=== PATIENT | male | born 1970 | race Caucasian/White ===

== ENCOUNTER 2020-12-21 05:23 | Emergency (ER) | payer SELFPAY ==
--- NOTE | 2020-12-21 05:42 | ER ---
Nurse's Notes [facility] Name: Andres Cervantes Jr Age: 50 yrs Sex: Male : 1970 Arrival Date: 12/21/2020 Time: 05:25 Bed 7 Private MD: Diagnosis: Cellulitis of left lower limb Presentation: 12/21 05:33 Chief complaint: Patient states: spider bite on left thigh for 4-5 days, reports fever em off and on. Coronavirus screen: Client denies travel out of the [place] in the last 14 days. Ebola Screen: Patient negative for fever greater than or equal to 101.5 degrees Fahrenheit, and additional compatible Ebola Virus Disease symptoms Patient denies exposure to infectious person. Patient denies travel to an Ebola-affected area in the 21 days before illness onset. No symptoms or risks identified at this time. Initial Sepsis Screen: Does the patient meet any 2 criteria? Does the patient have a suspected source of infection? Yes: Skin breakdown/wound. Risk Assessment: Do you want to hurt yourself or someone else? Patient reports no desire to harm self or others. Onset of symptoms was November 27, 2020. 05:33 Method Of Arrival: Wheelchair em 05:33 Acuity: RAGHAV 4 em 05:34 Coronavirus screen: At this time, the client does not indicate any symptoms associated ea with coronavirus-19. Ebola Screen: No symptoms or risks identified at this time. Initial Sepsis Screen: Does the patient meet any 2 criteria? No. Patient's initial sepsis screen is negative. Does the patient have a suspected source of infection? No. Patient's initial sepsis screen is negative. Risk Assessment: Do you want to hurt yourself or someone else? Patient reports no desire to harm self or others. Triage Assessment: 05:38 Bite description: bite sustained to medial aspect of left thigh by insect, animal ea information: vaccination(s) is not applicable. General: Appears in no apparent distress. Behavior is appropriate for age. Respiratory: Airway is patent Respiratory effort is even, unlabored, Respiratory pattern is regular, symmetrical. Derm: Skin is. Derm: Skin is pink, warm \T\ dry. Historical: - Allergies: 05:36 Codeine; em - PMHx: 05:36 None; em - PSHx: 05:36 None; em - Immunization history:: Adult Immunizations up to date. - Social history:: Smoking status: unknown. - Family history:: not pertinent. - Hospitalizations: : No recent hospitalization is reported. Screenin:30 Abuse screen: Denies threats or abuse. Nutritional screening: No deficits noted. ea Tuberculosis screening: No symptoms or risk factors identified. Fall Risk None identified. Assessment: 05:36 General: Appears in no apparent distress. Behavior is appropriate for age. Pain: ea Complains of pain in left leg. Neuro: Level of Consciousness is awake, alert, obeys commands, Oriented to person, place, time. Cardiovascular: Patient's skin is warm and dry. Derm: Skin is red, left upper thigh. Injury Description: Bite sustained to medial aspect of right thigh caused by insect is from insect. 05:36 Derm: Skin is intact, Wound noted left upper thigh Wound is round wound size of a rr5 quarter, redness on the area noted. 05:36 Respiratory: Airway is patent Respiratory effort is even, unlabored, Respiratory rr5 pattern is regular, symmetrical. GI: No signs and/or symptoms were reported involving the gastrointestinal system. : No signs and/or symptoms were reported regarding the genitourinary system. EENT: No signs and/or symptoms were reported regarding the EENT system. Musculoskeletal: Capillary refill < 3 seconds. 05:56 Reassessment: Patient appears in no apparent distress at this time. Patient is alert, rr5 oriented x 3, equal unlabored respirations, skin warm/dry/pink. discharge instruction given and explained without complaints made. Vital Signs: 05:32 BP 134 / 71; Pulse 82; Resp 18; Pulse Ox 99% on R/A; ea 05:33 Resp 18; Temp 97.6(O); Pulse Ox 99% on R/A; Weight 104.33 kg; Height 6 ft. 1 in. em (185.42 cm); Pain 8/10; 05:33 BP 131 / 70; rr5 05:33 Body Mass Index 30.34 (104.33 kg, 185.42 cm) em ED Course: 05:25 Patient arrived in ED. bp1 05:27 Jurgen Vasquez MD is Attending Physician. rn 05:31 Sangeeta Carter RN is Primary Nurse. ea 05:31 Arm band placed on right wrist. Patient placed in an exam room, on a stretcher, on ea pulse oximetry. 05:31 Patient has correct armband on for positive identification. Bed in low position. Call ea light in reach. Side rails up X2. 05:35 Triage completed. em 05:50 No provider procedures requiring assistance completed. Patient did not have IV access rr5 during this emergency room visit. Wound care: to cellulitis located on left leg and left upper thigh was cleaned with Hibiclens, dressed with Neosporin, 4X4s, Patient tolerated well. Administered Medications: No medications were administered Outcome: 05:42 Discharge ordered by . rn 05:57 Discharged to home via wheelchair. rr5 05:57 Condition: stable 05:57 Discharge instructions given to patient, Instructed on discharge instructions, follow up and referral plans. medication usage, Demonstrated understanding of instructions, follow-up care, medications, Prescriptions given X 2. 05:58 Patient left the ED. rr5 Signatures: Mayank Rios RN RN Jurgen Maravilla MD MD rn Antunez, Elena, RN RN ea Roque, Raymond RN RN rr5 Dulce Maria Nath [facility]
--- NOTE | 2020-12-21 05:42 | EDPHYS ---
Physician Documentation [facility] Name: Andres Cervantes Jr Age: 50 yrs Sex: Male : 1970 Arrival Date: 12/21/2020 Time: 05:25 Bed 7 Private MD: ED Physician Jurgen Vasquez HPI: 12/21 05:34 This 50 yrs old Male presents to ER via Unassigned with complaints of Insect rn Bite. 05:34 The patient presents with cellulitis of the left leg, the patient presents with a rn swollen area of the left leg. Description: erythematous, swollen, warm. Onset: The symptoms/episode began/occurred 5 day(s) ago. Possible cause(s): unknown. Modifying factors: the symptoms are alleviated by squeezing the lesion and expressing the contents, baking soda paste. Severity of symptoms: At their worst the symptoms were moderate, in the emergency department the symptoms have improved. The patient has not experienced similar symptoms in the past. Reports thinks got spider bite 5 days ago, was "looking like a big pimple", popped it himself, and has been putting baking soda paste on it. Reports improving, area of redness has decreased, no more drainage, but still hurts so came in. No fever. Not diabetic.. Historical: - Allergies: 05:36 Codeine; em - PMHx: 05:36 None; em - PSHx: 05:36 None; em - Immunization history:: Adult Immunizations up to date. - Social history:: Smoking status: unknown. - Family history:: not pertinent. - Hospitalizations: : No recent hospitalization is reported. ROS: 05:34 Constitutional: Negative for fever, chills, and weight loss, Cardiovascular: Negative rn for chest pain, palpitations, and edema, Respiratory: Negative for shortness of breath, cough, wheezing, and pleuritic chest pain, Abdomen/GI: Negative for abdominal pain, nausea, vomiting, diarrhea, and constipation, Back: Negative for injury and pain, MS/Extremity: Negative for injury and deformity, Skin: + swelling and redness Neuro: Negative for headache, weakness, numbness, tingling, and seizure. Exam: 05:34 Constitutional: This is a well developed, well nourished patient who is awake, alert, rn and in no acute distress. Cardiovascular: Regular rate and rhythm. No pulse deficits. Respiratory: No increased work of breathing, no retractions or nasal flaring. Skin: Warm, dry. Left upper thigh with 3cm area of induration, central open wound, no purulence expressed with firm pressure, no streaking, no fluctuance. center of wound is open approx 1.5 cm. MS/ Extremity: Pulses equal, no cyanosis. Neurovascular intact. Full, normal range of motion. Equal circumference. Vital Signs: 05:32 BP 134 / 71; Pulse 82; Resp 18; Pulse Ox 99% on R/A; ea 05:33 Resp 18; Temp 97.6(O); Pulse Ox 99% on R/A; Weight 104.33 kg; Height 6 ft. 1 in. em (185.42 cm); Pain 8/10; 05:33 BP 131 / 70; rr5 05:33 Body Mass Index 30.34 (104.33 kg, 185.42 cm) em MDM: 05:27 Patient medically screened. rn 05:34 Differential diagnosis: cellulitis, insect bite. Data reviewed: vital signs, nurses rn notes, and as a result, I will discharge patient. Counseling: I had a detailed discussion with the patient and/or guardian regarding: the historical points, exam findings, and any diagnostic results supporting the discharge/admit diagnosis, the need for outpatient follow up, to return to the emergency department if symptoms worsen or persist or if there are any questions or concerns that arise at home. Special discussion: I discussed with the patient/guardian in detail that at this point there is no indication for admission to the hospital. It is understood, however, that if the symptoms persist or worsen the patient needs to return immediately for re-evaluation. ED course: + cellulitis with central ulceration, no fluctuance, nothing to drain, will place on abx and given return precautions. . 12/21 05:57 Order name: Wound Care; Complete Time: 05:57 rr5 Administered Medications: No medications were administered Disposition: 12/21/20 05:42 Discharged to Home. Impression: Cellulitis of left lower limb. - Condition is Stable. - Discharge Instructions: Cellulitis, Adult. - Prescriptions for Bactrim DS 800- 160 mg Oral Tablet - take 1 tablet by ORAL route every 12 hours for 10 days; 20 tablet. Doxycycline Monohydrate 100 mg Oral Tablet - take 1 tablet by ORAL route every 12 hours for 10 days; 20 tablet. - Medication Reconciliation Form, Thank You Letter, Antibiotic Education, Prescription Opioid Use form. - Follow up: Private Physician; When: As needed; Reason: Recheck today's complaints, Re-evaluation by your physician. - Problem is new. - Symptoms are unchanged. Signatures: Mayank Rios RN RN em Nieto, Roman, MD MD rn Antunez, Elena, RN RN ea Roque, Raymond, RN RN rr5 Corrections: (The following items were deleted from the chart) 05:58 05:42 12/21/2020 05:42 Discharged to Home. Impression: Cellulitis of left lower limb. rr5 Condition is Stable. Forms are Medication Reconciliation Form, Thank You Letter, Antibiotic Education, Prescription Opioid Use. Follow up: Private Physician; When: As needed; Reason: Recheck today's complaints, Re-evaluation by your physician. Problem is new. Symptoms are unchanged. rn
[2020-12-21 06:02] VITALS: O2SAT 99
[2020-12-21 06:03] VITALS: BP 131/70; TEMP 97.6
== END 2020-12-21 05:58 | disposition home or self-care (01) ==
LOC: ER 05:23
DX: L03.116 Cellulitis of left lower limb (principal)
CPT/HCPCS: 99283

== ENCOUNTER 2021-02-03 10:32 | Emergency (ER) | payer SELFPAY ==
--- NOTE | 2021-02-03 11:10 | EDPHYS ---
Physician Documentation [facility] Name: Andres Cervantes Jr Age: 50 yrs Sex: Male : 1970 Arrival Date: 02/03/2021 Time: 10:35 Bed 16 Private MD: ED Physician Haja Contreras HPI: 02/03 11:03 This 50 yrs old Male presents to ER via Ambulatory with complaints of Leg jmm Cellulitis-out of medication. 11:03 the patient presents with a swollen area of the right leg. Onset: The symptoms/episode jmm began/occurred gradually, 4 day(s) ago. Possible cause(s): unknown. Associated signs and symptoms: Pertinent positives: discharge, drainage, erythema, swelling. Modifying factors: the symptoms are alleviated by nothing. The patient has experienced similar episodes in the past. Historical: - Allergies: 10:50 Codeine; ll1 - PMHx: 10:50 None; ll1 - PSHx: 10:50 None; ll1 - Immunization history:: Last tetanus immunization: up to date Flu vaccine is up to date. - Social history:: Smoking status: Patient reports the use of cigarette tobacco products, smokes one-half pack cigarettes per day. ROS: 11:03 Constitutional: Negative for fever, chills, and weight loss, Cardiovascular: Negative jmm for chest pain, palpitations, and edema, Respiratory: Negative for shortness of breath, cough, wheezing, and pleuritic chest pain. 11:03 Skin: Positive for erythema, swelling. 11:03 All other systems are negative. Exam: 11:03 Constitutional: This is a well developed, well nourished patient who is awake, alert, jmm and in no acute distress. Head/Face: atraumatic. Eyes: EOMI, no conjunctival erythema appreciated ENT: Moist Mucus Membranes Neck: Trachea midline, Supple Chest/axilla: Normal chest wall appearance and motion. Cardiovascular: Regular rate and rhythm. No edema appreciated Respiratory: Normal respirations, no respiratory distress appreciated Abdomen/GI: Non distended, soft Back: Normal ROM 11:08 Skin: abscess, that is moderate sized, of the right [place], with drainage, with jmm fluctuance, with induration, with surrounding cellulitis. 11:08 Neuro: Orientation: is normal, Mentation: is normal, Memory: is normal. 11:08 Psych: Behavior/mood is pleasant, cooperative. Vital Signs: 10:50 BP 134 / 82; Pulse 74; Resp 16; Temp 97.4; Pulse Ox 99% ; Weight 104.33 kg; Height 6 ll1 ft. 1 in. (185.42 cm); Pain 10/10; 10:50 Body Mass Index 30.34 (104.33 kg, 185.42 cm) ll1 MDM: 10:58 Patient medically screened. [facility] 11:07 Data reviewed: vital signs, nurses notes. Counseling: I had a detailed discussion with chuckie the patient and/or guardian regarding: the historical points, exam findings, and any diagnostic results supporting the discharge/admit diagnosis, the need for outpatient follow up, to return to the emergency department if symptoms worsen or persist or if there are any questions or concerns that arise at home. 11:08 ED course: Patient refused incision and drainage. chuckie Administered Medications: No medications were administered Disposition: 17:52 Co-signature as Attending Physician, Haja Contreras MD I agree with the assessment and [facility] plan of care. Disposition: 02/03/21 11:09 Discharged to Home. Impression: Cutaneous Abscess of Right Lower Leg. - Condition is Stable. - Discharge Instructions: Skin Abscess. - Prescriptions for Clindamycin HCl 300 mg Oral Capsule - take 1 capsule by ORAL route every 6 hours for 10 days; 40 capsule. - Medication Reconciliation Form, Thank You Letter, Antibiotic Education, Prescription Opioid Use form. - Follow up: Private Physician; When: 2 - 3 days; Reason: Recheck today's complaints, Continuance of care, Re-evaluation by your physician. Signatures: Herber Galdamez PA PA jmm Smirch, Shelby, RN RN Haja Starr MD MD 4 Beatriz Joshi RN RN ll1 Corrections: (The following items were deleted from the chart) 11:30 11:09 02/03/2021 11:09 Discharged to Home. Impression: Cutaneous Abscess of Right Lower ss Leg. Condition is Stable. Forms are Medication Reconciliation Form, Thank You Letter, Antibiotic Education, Prescription Opioid Use. Follow up: Private Physician; When: 2 - 3 days; Reason: Recheck today's complaints, Continuance of care, Re-evaluation by your physician. chuckie
--- NOTE | 2021-02-03 11:10 | ER ---
Nurse's Notes [facility] Name: Andres Cervantes Jr Age: 50 yrs Sex: Male : 1970 Arrival Date: 02/03/2021 Time: 10:35 Bed 16 Private MD: Diagnosis: Cutaneous Abscess of Right Lower Leg Presentation: 02/03 10:50 Chief complaint: Patient states: Here for L thigh abscess in November. States he had a ll1 allergic reaction to the antibiotics we gave him so he stopped them early. New abscess to R lower leg for 4-5 days. No fever. Coronavirus screen: Client denies travel out of the [place] in the last 14 days. At this time, the client does not indicate any symptoms associated with coronavirus-19. Ebola Screen: Patient denies travel to an Ebola-affected area in the 21 days before illness onset. Initial Sepsis Screen: Does the patient meet any 2 criteria? No. Patient's initial sepsis screen is negative. Does the patient have a suspected source of infection? Yes: Skin breakdown/wound. Risk Assessment: Do you want to hurt yourself or someone else? Patient reports no desire to harm self or others. Onset of symptoms was January 29, 2021. 10:50 Method Of Arrival: Ambulatory ll1 10:50 Acuity: RAGHAV 4 ll1 Historical: - Allergies: 10:50 Codeine; ll1 - PMHx: 10:50 None; ll1 - PSHx: 10:50 None; ll1 - Immunization history:: Last tetanus immunization: up to date Flu vaccine is up to date. - Social history:: Smoking status: Patient reports the use of cigarette tobacco products, smokes one-half pack cigarettes per day. Vital Signs: 10:50 BP 134 / 82; Pulse 74; Resp 16; Temp 97.4; Pulse Ox 99% ; Weight 104.33 kg; Height 6 ll1 ft. 1 in. (185.42 cm); Pain 10/10; 10:50 Body Mass Index 30.34 (104.33 kg, 185.42 cm) ll1 ED Course: 10:35 Patient arrived in ED. ds1 10:49 Arm band placed on Patient placed in an exam room, on a stretcher. ll1 10:53 Triage completed. ll1 10:54 Monica Ruelas, RN is Primary Nurse. hb 10:54 Herber Galdamez PA is PHCP. [facility] 10:54 Haja Contreras MD is Attending Physician. chuckie Administered Medications: No medications were administered Outcome: 11:09 Discharge ordered by . chuckie 11:30 Patient left the ED. Signatures: Herber Galdamez PA PA Radhika Oropeza ds1 Erica Green RN RN Monica Ruelas RN RN Beatriz Joshi RN RN ll1
[2021-02-03 11:35] VITALS: BP 134/82; TEMP 97.4; O2SAT 99
== END 2021-02-03 11:30 | disposition home or self-care (01) ==
LOC: ER 10:32
DX: L02.415 Cutaneous abscess of right lower limb (principal); F17.210 Nicotine dependence, cigarettes, uncomplicated; Z88.5 Allergy status to narcotic agent
CPT/HCPCS: 99281